=== PATIENT | female | born 2000 | race Hispanic/Latino ===

== ENCOUNTER → 2022-10-05 | Outpatient (CLI) | payer OTHER ==
[2022-10-05 14:21] LABS: MEAN CORPUSCULAR HEMOGLOBIN 28.4 pg (27.0-33.0); MEAN CORPUSCULAR HGB CONC 32.5 g/dl (32.0-36.5); MEAN CORPUSCULAR VOLUME 87.5 fl (80.0-96.0); PLATELET COUNT, AUTOMATED 307 10^3/uL (150-450); RED BLOOD COUNT 4.57 10^6/uL (4.00-5.40); WHITE BLOOD COUNT 7.5 10^3/uL (4.0-10.0)
[2022-10-05 14:31] LABS: INR 0.94; PROTHROMBIN TIME 12.8 SECONDS (12.5-14.5)
[2022-10-05 14:32] LABS: PARTIAL THROMBOPLASTIN TIME 34.2 SECONDS (24.8-34.2)
== END ==
LOC: M RAD 12:28
PROVIDERS: ATTEND Physician Assistant
DX: N93.9 Abnormal uterine and vaginal bleeding, unspecified (principal)